=== PATIENT | male | born 1980 | race African-American/Black ===

== ENCOUNTER 2019-10-15 17:25 | Inpatient (IN) | payer MEDICARE, MEDICAID ==
[~2019-10-15] VITALS: Ht 172.7 cm; Wt 59.4 kg
[~2019-10-15 17:25] MED LIST: AM100 PO; DIPH25CA83 PO; DOLU10TA PO; EMTR1TAB11 PO; GABA800T97 PO; IBUP-2030 PO; IMIT50 PO; MIRT-91 PO; MULT-1146 PO; ONDA4TAB5 PO; OXYC-105 MT; PREG75CA PO; VENL37.586 PO
[2019-10-15] MEDS ORDERED: PIPERACILLIN/TAZ 3.375G PREMIX 50 ML IV ONE (17:45)
[2019-10-15] MEDS ORDERED: VANCOMYCIN 1 G PREMIX 200 ML IV ONE (17:45)
[2019-10-15] MEDS ORDERED: SODIUM CHLORIDE 0.9% 1000ML BAG (SEPSIS BOLUS) IV ONE (17:45)
[2019-10-15 18:14] LABS: BG FRACTION INSPIRED OXYGEN 21; BG HCO3 ACT 2.3 mmol/L (22.0-26.0); BG PCO2 10.5 mmHg (35.0-45.0); BG PH 6.957 (7.350-7.450); BG PO2 59.9 mmHg (75.0-100.0); BG SAMPLE SITE RIGHT BRACHIAL; BG VENT MODE ROOM AIR
[2019-10-15 18:21] LABS: HEMATOCRIT. 41.1 % (42.0-52.0); MEAN CORPUSCULAR HEMOGLOBIN 26.5 pg (28.0-32.0); MEAN CORPUSCULAR VOLUME 83.3 fL (80.0-94.0); MEAN PLATELET VOLUME 11.3 fl (7.4-10.4); PLATELET 264 x1000/uL (130-400); RED BLOOD CELL COUNT 4.93 mill/uL (4.7-6.1); RED CELL DISTRIBUTION WIDTH 14.6 % (11.6-14.6)
[2019-10-15 18:29] LABS: CHLORIDE 55 mEq/L (98-107)
[2019-10-15] MEDS ORDERED: SODIUM BICARBONATE 8.4% 1 MEQ/ML 50ML SYR IV ONE (18:30)
[2019-10-15] MEDS ORDERED: NOREPINEPHRINE 4 MG in DEXT 5% WATER 246 ML IV ONE (18:30)
[2019-10-15 18:35] LABS: ETHANOL BLOOD < 10 mg/dL
[2019-10-15 19:14] LABS: PLATELET ESTIMATE NORMAL
[2019-10-15 19:57] LABS: HEMATOCRIT 31.8 % (42.0-52.0); HEMOGLOBIN 10.8 g/dL (14.0-18.0); MEAN CORPUSCULAR HEMOGLOBIN 26.6 pg (28.0-32.0); MEAN CORPUSCULAR VOLUME 78.3 fL (80.0-94.0); PLATELET 237 x1000/uL (130-400); RED BLOOD CELL COUNT 4.07 mill/uL (4.7-6.1); RED CELL DISTRIBUTION WIDTH 14.4 % (11.6-14.6)
[2019-10-15 20:00] LABS: CLARITY URINE CLEAR (CLEAR); COLOR URINE YELLOW (YELLOW); KETONES URINE NEGATIVE (NEGATIVE); LEUKOCYTE ESTERASE URINE NEGATIVE (NEGATIVE); NITRITE URINE NEGATIVE (NEGATIVE); OCCULT BLOOD URINE TRACE (NEGATIVE); PROTEIN URINE 3+ (NEGATIVE); SPECIFIC GRAVITY URINE 1.016 (1.005-1.030); UROBILINOGEN URINE 0.2 E.U./dL (0.2-1.0)
[2019-10-15 20:06] LABS: PROTHROMBIN TIME 11.1 sec (9.6-11.0)
[2019-10-15 20:25] LABS: *AMPHETAMINES SCREEN URINE NEGATIVE (NEGATIVE)
[2019-10-15 20:27] LABS: *BARBITURATES SCREEN URINE NEGATIVE (NEGATIVE); *BENZODIAZEPINES SCREEN URINE NEGATIVE (NEGATIVE); *COCAINE SCREEN URINE NEGATIVE (NEGATIVE); METHADONE URINE SCREEN NEGATIVE (NEGATIVE); OPIATES URINE SCREEN NEGATIVE (NEGATIVE)
[2019-10-15 20:28] LABS: CANNABINOID URINE SCREEN PRESUMTIVE POSITIVE (NEGATIVE); PHENCYCLIDINE URINE SCREEN NEGATIVE (NEGATIVE)
[2019-10-15 20:44] LABS: CREATINE KINASE MB FRACTION 50.1 ng/mL (0.5-3.6)
[2019-10-15] MEDS ORDERED: SODIUM CHLORIDE 0.9% 1,000 ML IV SCH (20:59)
[2019-10-15 21:24] LABS: BG BASE EXCESS 7.6 mmol/L (-2.0-2.0); BG CARBOXYHEMOGLOBIN 0.3 % (0.5-1.5); BG DEOXYHEMOGLOBIN 9.9 % (0.0-5.0); BG FRACTION INSPIRED OXYGEN 21; BG HCO3 ACT 34.1 mmol/L (22.0-26.0); BG METHEMOGLOBIN 0.4 % (0.0-1.5); BG OXYHEMOGLOBIN 89.4 % (94.0-97.0); BG PCO2 57.2 mmHg (35.0-45.0); BG PH 7.393 (7.350-7.450); BG PO2 73.6 mmHg (75.0-100.0); BG SAMPLE SITE RIGHT RADIAL; BG TOTAL HEMOGLOBIN 11.8 g/dL (12.0-18.0); BG VENT MODE ROOM AIR
[2019-10-15] MEDS: ONDANSETRON HCL 4MG/2ML INJ IV PRN (21:37)
[2019-10-15] MEDS: ACETAMINOPHEN 325MG TABLET PO PRN ×2 (21:37→22:19)
[2019-10-16] VITALS (7 sets, daily range): BP systolic 123–150; BP diastolic 78–91
[2019-10-16] MEDS ORDERED: PIPERACILLIN/TAZOBACTAM 3.375 G in DEXTROSE 5% WATER 50 ML IV SCH ×2
[2019-10-16] MEDS: HYDROCODONE/ACETAMINOPHEN 5/325MG TABLET PO PRN ×3 (00:14→17:23)
[2019-10-16 06:43] LABS: BASOPHILS % 0.4 % (0.0-2.0); HEMATOCRIT. 36.5 % (42.0-52.0); HEMOGLOBIN. 12.5 g/dL (14.0-18.0); LYMPHOCYTES % 9.8 % (20.0-50.0); MEAN CORPUSCULAR HEMOGLOBIN 26.4 pg (28.0-32.0); MEAN CORPUSCULAR VOLUME 76.8 fL (80.0-94.0); MEAN PLATELET VOLUME 9.8 fl (7.4-10.4); MONOCYTES % 6.4 % (2.0-8.0); NEUTROPHILS % 83.4 % (40.0-76.0); PLATELET 200 x1000/uL (130-400); RED BLOOD CELL COUNT 4.75 mill/uL (4.7-6.1); RED CELL DISTRIBUTION WIDTH 14.5 % (11.6-14.6)
[2019-10-16 06:49] LABS: CHLORIDE 69 mEq/L (98-107)
[2019-10-16] MEDS ORDERED: POTASSIUM CHLORIDE INJ 40 MEQ in DEXT 5% WATER 250 ML IV ONE (08:00)
[2019-10-16] MEDS ORDERED: PIPERACILLIN/TAZOBACTAM 2.25 G in DEXTROSE 5% WATER 50 ML IV SCH (08:00)
[2019-10-16 08:12] LABS: LDL CHOLESTEROL 93 mg/dL (5-100)
[2019-10-16 08:15] LABS: HDL CHOLESTEROL 51 mg/dL (40-59)
[2019-10-16] MEDS: HEPARIN 5000 UNITS/ML VIAL SUBCUT SCH ×2 (08:42→21:10)
[2019-10-16 10:04] LABS: CREATINE KINASE > 100000 IU/L (39-308)
[2019-10-16] MEDS: PIPERACILLIN/TAZOBACTAM 2.25 G in DEXTROSE 5% WATER 50 ML IV SCH (15:41)
[2019-10-16] MEDS: SODIUM BICARBONATE 100 MEQ in SODIUM CHLORIDE 0.45% 1,000 ML IV SCH (15:41)
[2019-10-16] MEDS ORDERED: DESV50TA10 PO (16:05)
[2019-10-16] MEDS ORDERED: TRAZ-252 PO (16:05)
[2019-10-16] MEDS ORDERED: CLON1TAB23 MT (16:05)
[2019-10-16] MEDS ORDERED: HYDR50SY PO (16:05)
[2019-10-17] VITALS (12 sets, daily range): BP systolic 113–154; BP diastolic 65–90
[2019-10-17] MEDS: SODIUM BICARBONATE 100 MEQ in SODIUM CHLORIDE 0.45% 1,000 ML IV SCH ×3 (00:15→13:52)
[2019-10-17] MEDS: HYDROCODONE/ACETAMINOPHEN 5/325MG TABLET PO PRN ×3 (00:16→18:10)
[2019-10-17] MEDS: PIPERACILLIN/TAZOBACTAM 2.25 G in DEXTROSE 5% WATER 50 ML IV SCH ×2 (00:16→08:39)
[2019-10-17 06:45] LABS: BASOPHILS % 0.7 % (0.0-2.0); EOSINOPHILS % 0.4 % (0.0-5.0); HEMATOCRIT. 34.5 % (42.0-52.0); HEMOGLOBIN. 11.9 g/dL (14.0-18.0); LYMPHOCYTES % 26.7 % (20.0-50.0); MEAN CORPUSCULAR HEMOGLOBIN 26.5 pg (28.0-32.0); MEAN CORPUSCULAR VOLUME 77.3 fL (80.0-94.0); MONOCYTES % 7.6 % (2.0-8.0); NEUTROPHILS % 64.6 % (40.0-76.0); PLATELET 191 x1000/uL (130-400); RED BLOOD CELL COUNT 4.47 mill/uL (4.7-6.1); RED CELL DISTRIBUTION WIDTH 14.7 % (11.6-14.6)
[2019-10-17] MEDS: HEPARIN 5000 UNITS/ML VIAL SUBCUT SCH ×2 (08:39→21:39)
[2019-10-17] MEDS ORDERED: VENLAFAXINE HCL 37.5MG SR CAPSULE 24HR PO SCH (11:15)
[2019-10-17 12:49] LABS: CREATINE KINASE > 102000 IU/L (39-308)
[2019-10-17] MEDS: FLUCONAZOLE 100MG TABLET PO SCH (14:15)
[2019-10-17] MEDS ORDERED: PREGABALIN 25MG CAPSULE PO SCH (17:00)
[2019-10-17] MEDS ORDERED: POTASSIUM CHLORIDE 20MEQ/PACKET PO NR ×2 (19:42→21:30)
[2019-10-17] MEDS ORDERED: MIRTAZAPINE 15MG TABLET PO SCH (21:00)
[2019-10-17] MEDS ORDERED: KCL 10MEQ/50ML PREMIX 50 ML IV NR ×2 (22:30→23:30)
[2019-10-18] VITALS (12 sets, daily range): BP systolic 114–151; BP diastolic 56–98
[2019-10-18] MEDS: ONDANSETRON HCL 4MG/2ML INJ IV PRN (00:23)
[2019-10-18] MEDS ORDERED: KCL 10MEQ/50ML PREMIX 50 ML IV NR ×2 (00:30→01:30)
[2019-10-18] MEDS: HYDROCODONE/ACETAMINOPHEN 5/325MG TABLET PO PRN ×2 (01:19→18:50)
[2019-10-18] MEDS: SODIUM CHLORIDE 0.9% 1,000 ML IV SCH ×2 (02:22→16:01)
[2019-10-18 06:38] LABS: BASOPHILS % 0.6 % (0.0-2.0); EOSINOPHILS % 0.5 % (0.0-5.0); HEMATOCRIT. 32.6 % (42.0-52.0); HEMOGLOBIN. 10.9 g/dL (14.0-18.0); LYMPHOCYTES % 23.2 % (20.0-50.0); MEAN CORPUSCULAR VOLUME 78.1 fL (80.0-94.0); MEAN PLATELET VOLUME 10.3 fl (7.4-10.4); MONOCYTES % 8.9 % (2.0-8.0); NEUTROPHILS % 66.8 % (40.0-76.0); PLATELET 178 x1000/uL (130-400); RED BLOOD CELL COUNT 4.17 mill/uL (4.7-6.1); RED CELL DISTRIBUTION WIDTH 14.3 % (11.6-14.6)
[2019-10-18 07:24] LABS: SODIUM URINE RANDOM 68 mEq/L
[2019-10-18] MEDS: FLUCONAZOLE 100MG TABLET PO SCH (08:52)
[2019-10-18] MEDS: HEPARIN 5000 UNITS/ML VIAL SUBCUT SCH ×2 (09:00→21:38)
[2019-10-18 13:47] LABS: PHOSPHORUS 8.7 mg/dL (2.5-4.9)
[2019-10-18 14:46] LABS: CREATINE KINASE 56355 IU/L (39-308)
[2019-10-19] MEDS: HYDROCODONE/ACETAMINOPHEN 5/325MG TABLET PO PRN ×3 (04:50→21:34)
[2019-10-19 06:00] VITALS: BP 84/66
[2019-10-19 06:55] LABS: BASOPHILS % 0.6 % (0.0-2.0); EOSINOPHILS % 1.5 % (0.0-5.0); HEMATOCRIT. 33.7 % (42.0-52.0); HEMOGLOBIN. 11.2 g/dL (14.0-18.0); LYMPHOCYTES % 26.6 % (20.0-50.0); MEAN CORPUSCULAR HEMOGLOBIN 26.1 pg (28.0-32.0); MEAN CORPUSCULAR VOLUME 78.6 fL (80.0-94.0); MEAN PLATELET VOLUME 10.5 fl (7.4-10.4); MONOCYTES % 8.1 % (2.0-8.0); NEUTROPHILS % 63.2 % (40.0-76.0); PLATELET 196 x1000/uL (130-400); RED BLOOD CELL COUNT 4.28 mill/uL (4.7-6.1); RED CELL DISTRIBUTION WIDTH 14.6 % (11.6-14.6)
[2019-10-19 06:56] LABS: PHOSPHORUS 7.7 mg/dL (2.5-4.9)
[2019-10-19 08:00] VITALS: BP 138/96
[2019-10-19] MEDS: HEPARIN 5000 UNITS/ML VIAL SUBCUT SCH ×2 (09:00→20:46)
[2019-10-19] MEDS: FLUCONAZOLE 100MG TABLET PO SCH (09:00)
[2019-10-19] MEDS: SODIUM CHLORIDE 0.9% 1,000 ML IV SCH (11:40)
[2019-10-19 12:00] VITALS: BP 133/77
[2019-10-19] MEDS ORDERED: SUMATRIPTAN SUCCINATE 25MG TABLET PO PRN (14:15)
[2019-10-19] MEDS: ACETAMINOPHEN 325MG TABLET PO PRN (15:14)
[2019-10-19 20:00] VITALS: BP 145/90
[2019-10-19 22:00] VITALS: BP 134/86
[2019-10-19] MEDS: ONDANSETRON HCL 4MG/2ML INJ IV PRN (22:01)
[2019-10-20] VITALS (10 sets, daily range): BP systolic 126–143; BP diastolic 78–96
[2019-10-20] MEDS: SODIUM CHLORIDE 0.9% 1,000 ML IV SCH ×4 (00:37→23:21)
[2019-10-20] MEDS: ONDANSETRON HCL 4MG/2ML INJ IV PRN ×3 (03:33→19:05)
[2019-10-20] MEDS: HYDROCODONE/ACETAMINOPHEN 5/325MG TABLET PO PRN ×2 (05:42→20:21)
[2019-10-20 06:52] LABS: BASOPHILS % 0.8 % (0.0-2.0); EOSINOPHILS % 1.1 % (0.0-5.0); HEMATOCRIT. 30.8 % (42.0-52.0); HEMOGLOBIN. 10.4 g/dL (14.0-18.0); LYMPHOCYTES % 25.7 % (20.0-50.0); MEAN CORPUSCULAR HEMOGLOBIN 26.4 pg (28.0-32.0); MEAN CORPUSCULAR VOLUME 78.3 fL (80.0-94.0); MONOCYTES % 7.1 % (2.0-8.0); NEUTROPHILS % 65.3 % (40.0-76.0); PLATELET 230 x1000/uL (130-400); RED BLOOD CELL COUNT 3.94 mill/uL (4.7-6.1); RED CELL DISTRIBUTION WIDTH 14.8 % (11.6-14.6)
[2019-10-20 07:52] LABS: PHOSPHORUS 6.9 mg/dL (2.5-4.9)
[2019-10-20] MEDS: HEPARIN 5000 UNITS/ML VIAL SUBCUT SCH ×2 (08:44→20:20)
[2019-10-20] MEDS: FLUCONAZOLE 100MG TABLET PO SCH (08:45)
[2019-10-20] MEDS: ACETAMINOPHEN 325MG TABLET PO PRN (08:57)
[2019-10-20] MEDS: FOLIC ACID/VITAMIN B COMP W-C TABLET PO SCH (11:00)
[2019-10-20] MEDS ORDERED: LIDOCAINE 2% JELLY PREFILLED SYRINGE MM ONE (12:30)
[2019-10-20 12:40] LABS: CREATINE KINASE 19883 IU/L (39-308)
[2019-10-20] MEDS: CALCIUM ACETATE 667MG CAPSULE PO SCH ×2 (13:28→17:27)
[2019-10-20] MEDS: MORPHINE SULFATE 2 MG/ML CPJ (NOT FOR IM USE) IV PRN ×2 (13:28→23:18)
[2019-10-21] VITALS (10 sets, daily range): BP systolic 117–150; BP diastolic 60–99
[2019-10-21] MEDS: ONDANSETRON HCL 4MG/2ML INJ IV PRN (01:26)
[2019-10-21 07:17] LABS: BASOPHILS % 0.9 % (0.0-2.0); EOSINOPHILS % 1.7 % (0.0-5.0); HEMATOCRIT. 26.5 % (42.0-52.0); HEMOGLOBIN. 8.9 g/dL (14.0-18.0); LYMPHOCYTES % 27.5 % (20.0-50.0); MEAN CORPUSCULAR HEMOGLOBIN 26.2 pg (28.0-32.0); MEAN CORPUSCULAR VOLUME 77.7 fL (80.0-94.0); MEAN PLATELET VOLUME 9.7 fl (7.4-10.4); NEUTROPHILS % 60.9 % (40.0-76.0); PLATELET 255 x1000/uL (130-400); RED BLOOD CELL COUNT 3.41 mill/uL (4.7-6.1); RED CELL DISTRIBUTION WIDTH 14.7 % (11.6-14.6)
[2019-10-21] MEDS: FLUCONAZOLE 100MG TABLET PO SCH (08:51)
[2019-10-21] MEDS: FOLIC ACID/VITAMIN B COMP W-C TABLET PO SCH (08:51)
[2019-10-21] MEDS: HYDROCODONE/ACETAMINOPHEN 5/325MG TABLET PO PRN ×2 (08:51→17:46)
[2019-10-21] MEDS: HEPARIN 5000 UNITS/ML VIAL SUBCUT SCH ×2 (08:52→20:38)
[2019-10-21] MEDS: CALCIUM ACETATE 667MG CAPSULE PO SCH ×3 (08:52→17:46)
[2019-10-21] MEDS ORDERED: POTASSIUM CHLORIDE 20MEQ TABLET SR PO SCH (09:30)
[2019-10-21 12:03] LABS: CREATINE KINASE 7585 IU/L (39-308)
[2019-10-21] MEDS: SODIUM CHLORIDE 0.9% 1,000 ML IV SCH ×2 (13:23→23:58)
[2019-10-21] MEDS: MORPHINE SULFATE 2 MG/ML CPJ (NOT FOR IM USE) IV PRN (22:22)
[2019-10-21] MEDS ORDERED: ZOLPIDEM TARTRATE 5MG TABLET PO PRN (23:00)
[2019-10-22] VITALS (9 sets, daily range): BP systolic 114–160; BP diastolic 65–101
[2019-10-22] MEDS: HYDROCODONE/ACETAMINOPHEN 5/325MG TABLET PO PRN ×2 (07:00→11:35)
[2019-10-22 07:22] LABS: BASOPHILS % 0.7 % (0.0-2.0); EOSINOPHILS % 2.4 % (0.0-5.0); HEMATOCRIT. 29.1 % (42.0-52.0); HEMOGLOBIN. 9.8 g/dL (14.0-18.0); LYMPHOCYTES % 30.7 % (20.0-50.0); MEAN CORPUSCULAR HEMOGLOBIN 26.4 pg (28.0-32.0); MEAN CORPUSCULAR VOLUME 78.2 fL (80.0-94.0); MEAN PLATELET VOLUME 9.2 fl (7.4-10.4); NEUTROPHILS % 55.2 % (40.0-76.0); PLATELET 304 x1000/uL (130-400); RED BLOOD CELL COUNT 3.72 mill/uL (4.7-6.1); RED CELL DISTRIBUTION WIDTH 14.9 % (11.6-14.6)
[2019-10-22] MEDS: CALCIUM ACETATE 667MG CAPSULE PO SCH (08:00)
[2019-10-22] MEDS: FLUCONAZOLE 100MG TABLET PO SCH (08:45)
[2019-10-22] MEDS: HEPARIN 5000 UNITS/ML VIAL SUBCUT SCH (08:45)
[2019-10-22] MEDS: FOLIC ACID/VITAMIN B COMP W-C TABLET PO SCH (08:45)
[2019-10-22 08:49] LABS: CREATINE KINASE 4542 IU/L (39-308)
[2019-10-22] MEDS: ACETAMINOPHEN 325MG TABLET PO PRN (08:49)
[2019-10-22] MEDS ORDERED: POTASSIUM CHLORIDE 20MEQ TABLET SR PO NR (09:00)
[2019-10-22 09:06] LABS: ABSOLUTE EOSINOPHILS 0.1 x10E3/uL (0.0-0.4); ABSOLUTE LYMPHOCYTES 1.4 x10E3/uL (0.7-3.1); ABSOLUTE MONOCYTES 0.3 x10E3/uL (0.1-0.9); ABSOLUTE NEUTROPHILS 2.5 x10E3/uL (1.4-7.0); BASOPHILS 1 % (Not Estab.); HEMOGLOBIN 9.5 g/dL (13.0-17.7); IMMATURE GRANULOCYTES 0 % (Not Estab.); LYMPHOCYTES 33 % (Not Estab.); MEAN CORPUSCULAR HGB CONC. 31.7 g/dL (31.5-35.7); MEAN CORPUSCULAR VOLUME 82 fL (79-97); MONOCYTES 6 % (Not Estab.); NEUTROPHILS 58 % (Not Estab.); PLATELETS 221 x10E3/uL (150-450); RBC 3.65 x10E6/uL (4.14-5.80); RED CELL DISTRIBUTION WIDTH 15.8 % (11.6-15.4); WBC 4.3 x10E3/uL (3.4-10.8)
[2019-10-22 10:09] LABS: % CD 3 POS. LYMPHOCYTES 66.5 % (57.5-86.2); % CD 4 POS. LYMPHOCYTES 32.1 % (30.8-58.5); % CD 8 POS. LYMPH 36.2 % (12.0-35.5); ABSOLUTE CD 3 931 /uL (622-2402); ABSOLUTE CD 4 HELPER 449 /uL (359-1519); ABSOLUTE CD 8 SUPPRESSOR 507 /uL (109-897); CD4/CD8 RATIO 0.89 (0.92-3.72)
[2019-10-22] MEDS: SODIUM CHLORIDE 0.9% 1,000 ML IV SCH (10:35)
[2019-10-22] MEDS ORDERED: CALC667T8 PO (12:39)
[2019-10-22] MEDS ORDERED: NEPVIT PO (12:39)
[2019-10-22] MEDS ORDERED: CALCIUM ACETATE 667 MG TABLET PO SCH (13:00)
== END 2019-10-22 18:37 | disposition home or self-care (01) | DRG 974 ==
LOC: ER 17:25 → EDBEDREQ 18:48 → EDBEDREQTM 18:48 → EDBEDREQSVC 18:48 → 5EST 19:26 → EDBEDREQ 19:30 → EDBEDREQSVC 10-16 10:00 → ENRESERV 10-16 10:11
PROVIDERS: ADMIT Internal Medicine; ATTEND Internal Medicine
DX: B20 Human immunodeficiency virus [HIV] disease (principal); A41.9 Sepsis, unspecified organism; R65.21 Severe sepsis with septic shock; N17.9 Acute kidney failure, unspecified; M62.82 Rhabdomyolysis; E87.2 Acidosis; E87.1 Hypo-osmolality and hyponatremia; E44.0 Moderate protein-calorie malnutrition; Z68.1 Body mass index [BMI] 19.9 or less, adult; E87.4 Mixed disorder of acid-base balance; B38.0 Acute pulmonary coccidioidomycosis; E87.6 Hypokalemia; E86.9 Volume depletion, unspecified; N18.9 Chronic kidney disease, unspecified; R56.9 Unspecified convulsions; F12.90 Cannabis use, unspecified, uncomplicated; F17.210 Nicotine dependence, cigarettes, uncomplicated; F41.9 Anxiety disorder, unspecified; G43.909 Migraine, unspecified, not intractable, without status migrainosus; G89.29 Other chronic pain; D64.9 Anemia, unspecified; N47.2 Paraphimosis; K20.9 Esophagitis, unspecified; S01.01XA Laceration without foreign body of scalp, initial encounter; W18.39XA Other fall on same level, initial encounter; Z79.899 Other long term (current) drug therapy; Y93.89 Activity, other specified; Z71.6 Tobacco abuse counseling; Y92.89 Other specified places as the place of occurrence of the external cause; Y99.8 Other external cause status
CPT/HCPCS: 36415; 36600; 71045; 71250; 73120; 80048; 80053; 80061; 80202; 80305; 80320; 81003; 82375; 82533; 82550; 82553; 82565; 82575; 82805; 82962; 83605; 83735; 83880; 83930; 83935; 84100; 84145; 84295; 84300; 84443; 84484; 85025; 85027; 86359; 86360; 86635; 86850; 86900; 86920; 87804; 93005; 99291; J1644; J2270; J2405; J2543; J3370; J3480; J3490; J7030; J7060; G0480

== ENCOUNTER 2021-04-18 19:00 | Emergency (ER) | payer MEDICARE, MEDICAID ==
[~2021-04-18] VITALS: Ht 170.2 cm; Wt 64.0 kg
[~2021-04-18 19:00] MED LIST changes: -AM100 PO; +CALC667T8 PO; +CLON1TAB23 MT; +DESV50TA10 PO; -DOLU10TA PO; -EMTR1TAB11 PO; +HYDR50SY PO; -IBUP-2030 PO; -MIRT-91 PO; -MULT-1146 PO; +NEPVIT PO; -VENL37.586 PO
[2021-04-18 19:06] VITALS: BP 137/82
== END 2021-04-18 20:28 | disposition left against medical advice (07) ==
LOC: ER 19:00
DX: G40.909 Epilepsy, unspecified, not intractable, without status epilepticus (principal)
CPT/HCPCS: 99283

== ENCOUNTER 2021-06-25 18:30 | Emergency (ER) | payer MEDICARE, MEDICAID ==
[~2021-06-25] VITALS: Ht 157.5 cm; Wt 59.0 kg
[2021-06-25] MEDS ORDERED: LIDOCAINE HCL/EPINEPHRINE 1%-EPI 1:100,000 20 ML VIAL INFIL ONE (19:15)
[2021-06-25 19:28] VITALS: BP 109/73
== END 2021-06-25 21:02 | disposition home or self-care (01) ==
LOC: ER 18:30
DX: G40.909 Epilepsy, unspecified, not intractable, without status epilepticus (principal); Z72.820 Sleep deprivation; S01.21XA Laceration without foreign body of nose, initial encounter; R00.0 Tachycardia, unspecified; X58.XXXA Exposure to other specified factors, initial encounter; Y93.89 Activity, other specified; Y92.89 Other specified places as the place of occurrence of the external cause
CPT/HCPCS: 12011; 93005; 99283; J3490

== ENCOUNTER 2021-07-02 02:46 | Emergency (ER) | payer MEDICARE, MEDICAID ==
[~2021-07-02] VITALS: Ht 175.3 cm; Wt 59.0 kg
[2021-07-02 02:55] VITALS: BP 105/72
== END 2021-07-02 03:28 | disposition home or self-care (01) ==
LOC: ER 03:13
DX: Z48.02 Encounter for removal of sutures (principal)
CPT/HCPCS: 99281

== ENCOUNTER 2022-01-28 17:18 | Emergency (ER) | payer MEDICARE, MEDICAID ==
[~2022-01-28] VITALS: Ht 172.7 cm; Wt 80.0 kg
[2022-01-28] MEDS ORDERED: IBUPROFEN 400MG TABLET PO ONE (19:00)
[2022-01-28 19:27] VITALS: BP 104/83
[2022-01-28] MEDS ORDERED: IBUP-2028 MT (20:13)
== END 2022-01-28 20:29 | disposition home or self-care (01) ==
LOC: ER 17:18
DX: R07.89 Other chest pain (principal); S43.101A Unspecified dislocation of right acromioclavicular joint, initial encounter; M25.521 Pain in right elbow; R07.81 Pleurodynia; R42 Dizziness and giddiness; R94.31 Abnormal electrocardiogram [ECG] [EKG]; V43.52XA Car driver injured in collision with other type car in traffic accident, initial encounter; W22.11XA Striking against or struck by driver side automobile airbag, initial encounter; Y93.89 Activity, other specified; Y92.488 Other paved roadways as the place of occurrence of the external cause
CPT/HCPCS: 71045; 71100; 73030; 73080; 93005; 99284